=== PATIENT | male | born 1960 | race Caucasian/White ===

== ENCOUNTER 2023-10-20 06:29 | Inpatient (IN) | payer MEDICARE, OTHER ==
[2023-10-20] MEDS ORDERED: ANESTHESIA TRAY IN PYXIS 1 EA TRAY MC ONE (07:01)
[2023-10-20] MEDS ORDERED: LIDOCAINE 2%-EPI 1:100,000 30 ML VIAL ONE (07:01)
[2023-10-20] MEDS ORDERED: ALBUTEROL SULFATE 8 GM HFA.AER.AD ONE (07:02)
[2023-10-20] MEDS ORDERED: dexaMETHasone SOD PHOSPHATE 2 ML ONE (07:02)
[2023-10-20] MEDS ORDERED: VANCOMYCIN 1 GM VIAL ONE (07:02)
[2023-10-20] MEDS ORDERED: FENTANYL PF 250MCG/5ML AMPUL ONE (07:15)
[2023-10-20] MEDS ORDERED: ROCURONIUM BROMIDE 50 MG/5 ML ONE (07:15)
[2023-10-20] MEDS ORDERED: OXYMETAZOLINE HCL NASAL SPRAY 30 ML BOTTLE NS ONE (07:22)
[2023-10-20 07:35] LABS: HEMOGLOBIN 13.2 g/dL (13.5-17.5)
[2023-10-20] MEDS ORDERED: LABETALOL HCL IV 100MG VIAL ONE (09:31)
[2023-10-20] MEDS: IV NS 0.9% 1,000 ML BAG IV PRN (11:22)
[2023-10-20] MEDS ORDERED: ACETAMINOPHEN 650 MG/20.3 ML UDC PO PRN (11:30)
[2023-10-20] MEDS ORDERED: ONDANSETRON HCL/PF 4 MG/2 ML VIAL IV PRN (11:30)
[2023-10-20] MEDS: IV NS 0.9% 1,000 ML IV PRN (13:22)
[2023-10-20] MEDS: HYDROMORPHONE 1 MG/1 ML DISP.SYRIN IV PRN (13:25)
[2023-10-20] MEDS ORDERED: METO-357 PO (13:39)
[2023-10-20] MEDS ORDERED: ATOR80TA PO (13:39)
[2023-10-20] MEDS ORDERED: ASPI-1169 PO (13:39)
[2023-10-20] MEDS ORDERED: TAMS-12 PO (13:39)
[2023-10-20 13:48] VITALS: BP 123/85; TEMP 98.6; O2SAT 94
[2023-10-20] MEDS: VANCOMYCIN 1 GM in IV D5W 250ml IV SCH (15:48)
[2023-10-20 16:30] VITALS: BP 150/88; TEMP 97.8; O2SAT 96
[2023-10-20 20:00] VITALS: BP 112/72; TEMP 98.2; O2SAT 93
[2023-10-21 07:30] VITALS: BP 113/88; TEMP 98.2; O2SAT 97
[2023-10-21] MEDS: TAMSULOSIN 0.4 MG CAP.SR.24H PO SCH (08:57)
[2023-10-21] MEDS: ASPIRIN 81 MG TAB.CHEW PO SCH (08:57)
[2023-10-21 08:58] VITALS: BP 113/88
[2023-10-21] MEDS: METOPROLOL SUCCINATE 50 MG TAB.SR.24H PO SCH (08:58)
[2023-10-21] MEDS: ATORVASTATIN 40 MG TABLET PO SCH (08:58)
== END 2023-10-21 11:27 | disposition home or self-care (01) | DRG 142 ==
LOC: DS 06:29 → MED 10:56
PROVIDERS: ADMIT Nurse Practitioner Acute Care; ATTEND Nurse Practitioner Acute Care
PROC: 0NBV0ZX Excision of Left Mandible, Open Approach, Diagnostic (ICD-10-PCS; principal; 2023-10-20)
PROC: 0NSR04Z Reposition Maxilla with Internal Fixation Device, Open Approach (ICD-10-PCS; 2023-10-20)
PROC: 0NSV0ZZ Reposition Left Mandible, Open Approach (ICD-10-PCS; 2023-10-20)
PROC: 0NST0ZZ Reposition Right Mandible, Open Approach (ICD-10-PCS; 2023-10-20)
PROC: 0NUR07Z Supplement Maxilla with Autologous Tissue Substitute, Open Approach (ICD-10-PCS; 2023-10-20)
PROC: 0NUV0JZ Supplement Left Mandible with Synthetic Substitute, Open Approach (ICD-10-PCS; 2023-10-20)
PROC: 0NUT0JZ Supplement Right Mandible with Synthetic Substitute, Open Approach (ICD-10-PCS; 2023-10-20)
PROC: 0NBR0ZX Excision of Maxilla, Open Approach, Diagnostic (ICD-10-PCS; 2023-10-20)
PROC: 0NBT0ZX Excision of Right Mandible, Open Approach, Diagnostic (ICD-10-PCS; 2023-10-20)
DX: S02.40DA Maxillary fracture, left side, initial encounter for closed fracture (principal); D16.5 Benign neoplasm of lower jaw bone; S02.40CA Maxillary fracture, right side, initial encounter for closed fracture; S02.609A Fracture of mandible, unspecified, initial encounter for closed fracture; M27.2 Inflammatory conditions of jaws; I25.10 Atherosclerotic heart disease of native coronary artery without angina pectoris; N40.0 Benign prostatic hyperplasia without lower urinary tract symptoms; I10 Essential (primary) hypertension; Z95.5 Presence of coronary angioplasty implant and graft; E78.5 Hyperlipidemia, unspecified; F17.200 Nicotine dependence, unspecified, uncomplicated; J32.9 Chronic sinusitis, unspecified; M60.9 Myositis, unspecified; X58.XXXA Exposure to other specified factors, initial encounter; Y92.9 Unspecified place or not applicable
CPT/HCPCS: 36415; 85027-TC; C1713; G0378; J0690; J1100; J1170; J2704; J3010; J3370; J3490; J7060

== ENCOUNTER 2024-02-19 12:19 | Outpatient (CLI) | payer MEDICARE, OTHER ==
[~2024-02-19 12:19] MED LIST: ASPI-1169 PO; ATOR80TA PO; METO-357 PO; TAMS-12 PO
[2024-02-19 13:51] LABS: BASOPHILS % (AUTO) 0.6 % (0.0-2.0); EOSINOPHILS # (AUTO) 0.2 K/uL (0.0-0.7); HEMATOCRIT 45 % (39-51); LYMPHOCYTES # (AUTO) 1.3 K/uL (0.8-4.8); LYMPHOCYTES % (AUTO) 21.4 % (20.0-44.0); MEAN CORPUSCULAR HEMOGLOBIN 31 PG (26.0-33.0); MEAN CORPUSCULAR HGB CONC 34 g/dl (31.0-36.0); MEAN CORPUSCULAR VOLUME 91 fL (80-96); MONOCYTES # (AUTO) 0.4 K/uL (0.1-1.30); MONOCYTES % (AUTO) 6.2 % (2.0-12.0); NEUTROPHILS # (AUTO) 4.2 K/uL (1.8-8.9); NEUTROPHILS % (AUTO) 67.8 % (43.0-81.0); PLATELET COUNT (AUTO) 272 K/uL (150-450); RED CELL DISTRIBUTION WIDTH 14.6 % (11.5-15.0); WHITE BLOOD COUNT (AUTO) 6.1 K/uL (4.3-11.0)
[2024-02-19 13:59] LABS: INR 1.11 (0.91-1.10); PARTIAL THROMBOPLASTIN TIME 27.5 SEC (24.3-34.3); PROTHROMBIN TIME 11.7 SECS (9.2-11.1)
[2024-02-19 14:17] LABS: ALBUMIN 3.7 g/dL (3.4-5.0); BILIRUBIN,TOTAL 0.5 mg/dL (0.2-1.0); CALCIUM, SERUM 8.8 mg/dL (8.5-10.1); CREATININE 0.9 mg/dL (0.6-1.3); POTASSIUM 4.3 mmol/L (3.5-5.1); TOTAL PROTEIN, SERUM 7.2 g/dL (6.4-8.2)
[2024-02-19 14:24] LABS: THYROID STIMULATING HORMONE 1.4 uIU/mL (0.358-3.74)
== END 2024-02-19 23:59 | disposition home or self-care (01) ==
LOC: RAD 12:19
PROVIDERS: ATTEND Internal Medicine Interventional Cardiology
DX: I10 Essential (primary) hypertension (principal); E11.9 Type 2 diabetes mellitus without complications; E78.5 Hyperlipidemia, unspecified; E03.9 Hypothyroidism, unspecified; D68.9 Coagulation defect, unspecified; R53.83 Other fatigue
CPT/HCPCS: 36415; 71046; 80053-TC; 80061-TC; 84439-TC; 84443-TC; 84481; 85025-TC; 85610-TC; 85730-TC

== ENCOUNTER 2024-03-01 08:28 | Inpatient (IN) | payer MEDICARE, OTHER ==
[~2024-03-01] VITALS: Ht 182.9 cm; Wt 87.1 kg
[2024-03-01] MEDS ORDERED: LIDOCAINE 2%-EPI 1:200,000 20 ML VIAL IJ ONE (12:43)
[2024-03-01] MEDS ORDERED: VANCOMYCIN 1 GM VIAL ONE (12:43)
[2024-03-01] MEDS ORDERED: dexaMETHasone SOD PHOSPHATE 2 ML ONE (12:43)
[2024-03-01] MEDS ORDERED: HYDROMORPHONE 1 MG/1 ML DISP.SYRIN IV PRN (15:00)
[2024-03-01] MEDS ORDERED: ONDANSETRON HCL/PF 4 MG/2 ML VIAL IV PRN (15:00)
[2024-03-01] MEDS: IV NS 0.9% 1,000 ML IV PRN (15:32)
[2024-03-01] MEDS: ACETAMINOPHEN 325 MG TABLET PO PRN (15:50)
[2024-03-01] MEDS ORDERED: ACETAMINOPHEN 325 MG TABLET PO PRN (17:00)
[2024-03-02] MEDS ORDERED: METOPROLOL SUCCINATE 50 MG TAB.SR.24H PO SCH (09:00)
[2024-03-02] MEDS ORDERED: TAMSULOSIN 0.4 MG CAP.SR.24H PO SCH (09:00)
[2024-03-02] MEDS ORDERED: ASPIRIN 81 MG TAB.CHEW PO SCH (09:00)
[2024-03-02] MEDS ORDERED: ATORVASTATIN 40 MG TABLET PO SCH (09:00)
== END 2024-03-01 18:21 | disposition home or self-care (01) | DRG 497 ==
LOC: DS 08:28 → MED 15:22
PROVIDERS: ADMIT Internal Medicine; ATTEND Internal Medicine
PROC: 0NPW04Z Removal of Internal Fixation Device from Facial Bone, Open Approach (ICD-10-PCS; principal; 2024-03-01)
PROC: 0NBR0ZZ Excision of Maxilla, Open Approach (ICD-10-PCS; 2024-03-01)
DX: T84.69XA Infection and inflammatory reaction due to internal fixation device of other site, initial encounter (principal); E78.5 Hyperlipidemia, unspecified; I10 Essential (primary) hypertension; N40.0 Benign prostatic hyperplasia without lower urinary tract symptoms; Y83.8 Other surgical procedures as the cause of abnormal reaction of the patient, or of later complication, without mention of misadventure at the time of the procedure; Y92.009 Unspecified place in unspecified non-institutional (private) residence as the place of occurrence of the external cause; K12.30 Oral mucositis (ulcerative), unspecified; M89.38 Hypertrophy of bone, other site
CPT/HCPCS: 88305-TC; 88311-TC; 88312-TC; A4223; A4338; G0378; J0461; J0690; J1100; J2704; J3370; J3490; J7030